=== PATIENT | male | born 1950 | race Caucasian/White ===

== ENCOUNTER → 2016-09-16 | Day surgery (SDC) | payer OTHER ==
[~2016-09-16] VITALS: Ht 175.3 cm; Wt 97.5 kg
[~2016-09-16] MED LIST: ALFU10TA3 PO; ASPI325T4 PO; BUPR300T3 PO; CEFTRIAXONE 1GM IVPB FOR OMNI 50 ML IV PRN; CHOL10007 PO; CIPR250T30 PO; CIPR500T94 PO; DEXAMETHASONE SOD PHOS 20 MG/5 ML VIAL. ONE; DIGO250T PO; DULO30CA2 PO; FENTANYL PF 100 MCG/2 ML VIAL. IV PRN; FLEC50TA PO; GENTAMICIN SULFATE 80 MG in IV NORMAL SALINE 100ML 100 ML IV ONE; GENTAMICIN SULFATE 80 MG in IV NORMAL SALINE 100ML 100 ML IV PRN; HYDROMORPHONE 2 MG/ML VIAL. IV PRN; IV RINGERS,LACTATED 1000ML 1,000 ML IV SCH; LIDOCAINE 1% 1 ML SYRINGE. ID PRN; LIDOCAINE 2% 100 MG/5 ML DISP.SYRIN. ONE; LISI2.5T PO; MORPHINE SULFATE 2 MG/ML DISP.SYRIN. IV PRN; ONDANSETRON PF 4 MG/2 ML VIAL. ONE; PHENYLEPHRINE in 0.9% NACL PF 1 MG/10 ML DISP.SYRIN. IV ONE; PROCHLORPERAZINE 10 MG/2 ML VIAL. IV PRN; PROPOFOL 20 ML IV ONE; RIVA20TA2 PO; SEVOFLURANE 31 TO 60 MINUTES. IH ONE; inhaler
[2016-09-16 07:08] LABS: BASO # 0.1 x10^3/uL (0.0-0.2); BASO % 1 % (0-3); EOS % 3 % (0-3); HEMATOCRIT 42.4 % (39.0-53.0); HEMOGLOBIN 13.9 g/dL (13.0-17.5); LYMPH # 1.1 x10^3/uL (1.0-4.8); LYMPH % 15 % (24-48); MEAN CORPUSCULAR HEMOGLOBIN 28 pg (25-35); MEAN CORPUSCULAR HGB CONC 33 g/dL (31-37); MEAN CORPUSCULAR VOLUME 86 fL (79-100); MONO % 13 % (0-9); NEUT % 69 % (31-73); PLATELET COUNT 182 x10^3/uL (140-400); RED BLOOD COUNT 4.92 x10^6/uL (4.30-5.70); WHITE BLOOD COUNT 7.3 x10^3/uL (4.0-11.0)
[2016-09-16 07:12] LABS: BILIRUBIN,URINE NEGATIVE (NEG); GLUCOSE,URINE NEGATIVE (NEG); NITRITE,URINE NEGATIVE (NEG); PH,URINE 5.5; PROTEIN,URINE NEGATIVE (NEG-TRACE); UROBILINOGEN,URINE 0.2 mg/dL (0.2 mg/dL)
[2016-09-16 07:21] LABS: BACTERIA,URINE 0 /HPF (0-FEW); RBC,URINE 0 /HPF (0-2); WBC,URINE OCC /HPF (0-4)
--- NOTE | 2016-09-16 09:16 | PDOC ---
BRIEF OPERATIVE NOTE Date: Sep 16, 2016 Pre-Op Diagnosis Elevated PSA (21.8) Post-Op Diagnosis Same Procedure Performed TRUS- Ultrasound guided prostate biopsies (14) Surgeon Billy Anesthesia Type: General Specimens Obtained 14 prostate biopsies Findings same Complications None Additional Remarks Tolerated well, Rx for Cipro given ZHANE HARTMAN DO Sep 16, 2016 09:16
--- NOTE | 2016-09-16 09:18 | DISCH ---
DISCHARGE INSTRUCTIONS Condition on Discharge Condition on Discharge: Stable Activity After Discharge Activity Instructions for Disc: Avoid exertion Lifting Instructions after Dis: No heavy lifting Driving Instructions after Dis: Do not drive today Diet after Discharge Diet after Discharge: Regular Wound Incision Care Other wound/incision instructi: Follow instruction sheet, start antibiotics this evening Contacting the [facility] after DC Call your doctor for: Concerns you may have Follow-Up Follow up with: Dr Hartman will call you with biopsy results when available ZHANE HARTMAN DO Sep 16, 2016 09:18
--- NOTE | 2016-09-16 09:33 | OP ---
DATE OF SURGERY: 09/16/2016 PREOPERATIVE DIAGNOSIS: Elevated prostate-specific antigen (21.8). POSTOPERATIVE DIAGNOSIS: Elevated prostate-specific antigen and benign prostatic hyperplasia. PROCEDURE: Transrectal ultrasound of prostate, ultrasound-guided biopsies of prostate. SURGEON: Zhane Hartman DO. ANESTHESIA: General. INDICATIONS AND JUDGMENT: This is a 66-year-old male with a history of BPH and elevated PSA. His most recent PSA was 21.8. He does have a history of a very large prostate. The patient underwent prostate ultrasound biopsies back in October 2014 and those were negative for malignancies. Due to the high PSA level was felt that he should have a repeat prostate biopsies. The procedure was explained to the patient. He appeared to understand and was agreeable. OPERATION AND PROCEDURE: The patient was preloaded with IV antibiotics. He received a gram of Rocephin and also 80 mg of gentamicin. He was taken to the operating room and placed on the operating room table in supine position, given a general anesthetic and then placed in a left lateral position with his knees tucked. An ultrasound probe was then advanced into the rectum. The prostate was visualized at various levels in a transverse mode. The prostate was measured at 136 grams. I thought that was a little high previously he measured 90 grams. The prostate was visualized at various levels, did appear to be some hypoechoic areas. The ultrasound probe was fitted with ultrasound-guided and biopsies were then taken with ultrasound guidance starting on the patient's left lateral prostate biopsies were performed from the apex to the mid gland to the base of the gland. A total of six biopsies were performed on the left side. The probe was then repositioned and the right side of the prostate was visualized and ultrasound guidance biopsies of the prostate on the right side were taken from apex to base. Two extra biopsies were taken in the mid gland. A total of 14 biopsies were taken. These were submitted to pathology. The patient tolerated the biopsies very well. The ultrasound probe was removed. The patient was then sent to recovery room in satisfactory condition. Plans will be to discharge the patient home with the prescription for Cipro antibiotics. He was given instruction sheet. I will call him with results. ZHNAE HARTMAN DO DR: GULSHAN/jeremias JOB#: [id number] / [id number]
[2016-09-16 10:10] VITALS: BP 149/83
--- NOTE | 2016-09-17 15:09 | PATHOLOGY ---
PATHOLOGY REPORT * * * * * * * * FINAL DIAGNOSIS: A. Prostate tissue, left apex prostate needle biopsy: - Focal glandular atrophy and acute and chronic inflammation. B. Prostate tissue, left mid prostate needle biopsy: - Focal glandular atrophy and acute and chronic inflammation. C. Prostate tissue, left base prostate needle biopsy: - Focal glandular hyperplasia, glandular atrophy, and acute and chronic inflammation. D. Prostate tissue, right apex prostate needle biopsy: - Focal glandular hyperplasia, glandular atrophy, and acute and chronic inflammation. E. Prostate tissue, right mid prostate needle biopsy: - Focal glandular hyperplasia, glandular atrophy, and acute and chronic inflammation. F. Prostate tissue, right base prostate needle biopsy: - Focal glandular hyperplasia. COMMENT: There is no evidence of malignancy. (JPM:mgrudy; d/t: 09/17/16) REPORT ELECTRONICALLY SIGNED BY: Sam Buenrostro M.D. DATE/TIME: 09/17/2016 15:09 * * * * * * * * GROSS PATHOLOGY: A. Submitted in formalin, labeled "Flavia Dan, left apex," are four needle cores of garcia tissue ranging in size from 0.5 to 1.0 cm in length, by less than 0.1 cm in diameter. Tissue is submitted in toto in cassette A1. B. Submitted in formalin, labeled "Flavia Dan, left mid," are two needle cores of garcia tissue measuring 1.8 and 1.9 cm in length, by less than 0.1 cm in diameter. Tissue is submitted in toto in cassette B1. C. Submitted in formalin, labeled "Flavia Dan, left base," are two needle cores of garcia tissue measuring 1.3 and 1.8 cm in length, by less than 0.1 cm in diameter. Tissue is submitted in toto in cassette C1. D. Submitted in formalin, labeled "Flavia Dan, labeled right apex," are two needle cores of garcia tissue measuring 0.9 and 1.5 cm in length, by less than 0.1 cm in diameter. Tissue is submitted in toto in cassette D1. E. Submitted in formalin, labeled "Flavia Dan, right mid," are two needle cores of garcia tissue measuring 1.6 and 1.8 cm in length, by less than 0.1 cm in diameter. Tissue is submitted in toto in cassette E1. F. Submitted in formalin, labeled "Flavia Dan, right base," are two needle cores of garcia tissue measuring 0.7 and 1.1 cm in length, by less than 0.1 cm in diameter. Tissue submitted in toto in cassette F1. ([facility]AA; 09/16/2016) INITIAL CPT CODE(S): A; 71289 B; 73637 C; 27007 D; 80568 E; 89595 F; 29413 Professional services performed [place] [facility] [place] [address] Technical services performed by [facility] at [address] [place] [address] [address] [place] [address]. SPECIMEN(S) RECEIVED: A.Left apex prostate, needle biopsy B.Left mid prostate, needle biopsy C.Left base prostate, needle biopsy D.Right apex prostate, needle biopsy E.Right mid prostate, needle biopsy F.Right base prostate, needle biopsy CLINICAL HISTORY: Elevated PSA PATIENT: FLAVIA DAN /AGE: 904/11/1950 (Age: 66) PATIENT #: [id number] ALT CASE #: SPECIMEN COLLECTION DATE: 09/16/2016 SPECIMEN RECEIVED DATE: 09/16/2016 [facility] - [id number] [place] [address] - PHONE: [phone] * * * END OF REPORT * * *
== END | disposition home or self-care (01) ==
LOC: SURG 06:30
PROVIDERS: ATTEND Urology
DX: R97.20 Elevated prostate specific antigen [PSA] (principal); E78.00 Pure hypercholesterolemia, unspecified; I48.91 Unspecified atrial fibrillation; I10 Essential (primary) hypertension; E66.9 Obesity, unspecified; F41.9 Anxiety disorder, unspecified; F32.9 Major depressive disorder, single episode, unspecified; Z72.89 Other problems related to lifestyle
CPT/HCPCS: 36415; 55700; 76942; 81001; 85027; 88305; A4215; C1887; J0690; J1100; J2370; J2405; J2704; 76998; J1580